=== PATIENT | female | born 2000 | race Caucasian/White ===

== ENCOUNTER 2019-12-13 19:33 | Emergency (ER) | payer OTHER, SELFPAY ==
[~2019-12-13] VITALS: Ht 160 cm; Wt 83.0 kg
[2019-12-13 19:45] VITALS: BP 121/81
--- NOTE | 2019-12-13 20:26 | NUR ---
COVID SWAB COLLECTED AND TAKEN TO LAB.
--- NOTE | 2019-12-13 20:30 | NUR ---
PT REFUSED CHEST XR. LORNA WAITE NOTIFIED.
--- NOTE | 2019-12-13 20:35 | NUR ---
Briseyda gardner in ED - 12/13/19 at 2043 by [facility] PT ELOPED FROM FACILITY. JORDAND NOTIFIED.
--- NOTE | 2019-12-13 20:43 | NUR ---
PT NOW ACCPETING CHEST XR. LORNA WAITE NOTIFIED.
[2019-12-13 21:20] VITALS: BP 121/81
--- NOTE | 2019-12-13 21:21 | NUR ---
Patient discharged with v/s stable. Written and verbal after care instructions given and explained. Patient verbalized understanding. Ambulatory with steady gait. All questions addressed prior to discharge. Advised to follow up with PMD.
--- NOTE | 2019-12-15 16:54 | NUR ---
COVID RESULTS RECEIVED FROM LAB. COVID RESULTS NEGATIVE. COPY OF RESULT PLACED IN INFECTION CONTROL'S MAILBOX.
== END 2019-12-13 21:21 | disposition home or self-care (01) ==
LOC: MED 19:33 → EEVIPCON 19:33 → MED 21:21
DX: U07.1 COVID-19 (principal); Z88.0 Allergy status to penicillin
CPT/HCPCS: 71045; 99284; U0003